=== PATIENT | female | born 1990 | race Caucasian/White ===

== ENCOUNTER 2017-06-14 01:29 | Emergency (ER) | payer OTHER ==
--- NOTE | 2017-06-14 01:47 | ER Document Report ---
ED Psych Disorder / Suicide - General Chief Complaint: Psych Problem Stated Complaint: PSYCH EVAL Time Seen by Provider: 06/14/17 01:39 Notes: The patient is a 26-year-old female, PMHx PTSD, anxiety, prior history of cutting herself, who presents by EMS after she was found staggering in [employer] with her 2 kids. [employer] was called who called EMS. Patient said she was very anxious because her ex- was on a first date with someone else. She said that she took 7 of her 100 mg Zoloft pills and two 0.5 mg Klonopin at noon yesterday in an attempt to kill herself. She said she also took some melatonin tabs. When EMS arrived, she took 2 more of her 0.5 mg Klonopins. She is completely asymptomatic. Patient denies abdominal pain, chest pain, shortness of breath, back pain, nausea, vomiting, homicidal ideation, rash, fevers or abdominal pain. Pt said that she told her 5-year-old son about what to expect after she killed herself. "I am not worried about him. I know he can take care of himself. He is my best friend. He just got saved by [employer]." - Related Data Allergies/Adverse Reactions: No Known Allergies Allergy (Unverified 06/14/17 02:04) Home Medications: Current Home Medications Clonazepam [Clonazepam] 0.5 mg PO ASDIR PRN 06/14/17 [History] Sertraline HCl [Sertraline HCl] 100 mg PO BID 06/14/17 [History] Past Medical History - General Information source: Patient - Social History Smoking Status: Unknown if Ever Smoked Family History: Reviewed & Not Pertinent Review of Systems - Review of Systems Notes: REVIEW OF SYSTEMS: CONSTITUTIONAL: -fevers, -chills EENT: -eye pain, -difficulty swallowing, -nasal congestion CARDIOVASCULAR:-chest pain, -syncope. RESPIRATORY: -cough, -SOB GASTROINTESTINAL: -abdominal pain, - nausea, -vomiting, -diarrhea GENITOURINARY: -dysuria, -hematuria MUSCULOSKELETAL: -back pain, -neck pain SKIN: -rash or skin lesions. HEMATOLOGIC: -easy bruising or bleeding. LYMPHATIC: -swollen, enlarged glands. NEUROLOGICAL: -altered mental status or loss of consciousness, -headache, - neurologic symptoms PSYCHIATRIC: +anxiety, +depression, +suicide attempt ALL OTHER SYSTEMS REVIEWED AND NEGATIVE. Physical Exam - Vital signs Vitals: Temp Pulse Resp BP Pulse Ox 98.8 F 96 18 127/100 H 97 06/14/17 02:05 06/14/17 02:05 06/14/17 02:05 06/14/17 02:05 06/14/17 02:05 - Notes Notes: PHYSICAL EXAMINATION: GENERAL: In no acute distress. Anxious. HEAD: Atraumatic, normocephalic. EYES: Pupils equal round and reactive to light, extraocular movements intact, sclera anicteric, conjunctiva are normal. ENT: nares patent, oropharynx clear without exudates. Moist mucous membranes. NECK: Normal range of motion, supple without lymphadenopathy LUNGS: Breath sounds clear to auscultation bilaterally and equal. No wheezes rales or rhonchi. HEART: Regular rate and rhythm without murmurs ABDOMEN: Soft, nontender, normoactive bowel sounds. No guarding, no rebound. No masses appreciated. EXTREMITIES: Normal range of motion, no pitting or edema. No cyanosis. NEUROLOGICAL: Cranial nerves grossly intact. Normal speech, normal gait. Normal sensory and motor exams. PSYCH: Suicidal thoughts. Very anxious. Pressured speech. SKIN: Warm, Dry, normal turgor, no rashes or lesions noted. Course - Re-evaluation Re-evalutation: Shell RN, spoke to poison control and due to the 13 hours since her Zoloft ingestion, she should not be manifesting any toxic effects. Patient said that she is anxious and is requesting her Klonopin. Told her that she already took too many of her Klonopin and that we can offer Vistaril. She said that she took her Zoloft, Klonopin and melatonin in attempt to kill herself because she is going through divorce and her ex- went out on a first date today. She agrees to speak to mental health in the morning. Patient appears manic with pressured speech and nonstop talking in the ER. She has never been diagnosed with bipolar before. She is medically cleared for evaluation by psychiatry. - Vital Signs Vital signs: Temp Pulse Resp BP Pulse Ox 98.8 F 96 18 127/100 H 97 06/14/17 02:05 06/14/17 02:05 06/14/17 02:05 06/14/17 02:05 06/14/17 02:05 - Laboratory Result Diagrams: 06/14/17 02:18 06/14/17 02:18 Laboratory results interpreted by me: 06/14/17 06/14/17 02:18 02:18 MCV 79 L MCH 26.5 L RDW 15.0 H Carbon Dioxide 20 L Salicylates < 1.0 L Acetaminophen < 10 L - EKG Interpretation by Me EKG shows normal: Sinus rhythm, [place], Intervals, QRS Complexes, ST-T Waves Rate: Normal Discharge - Discharge Clinical Impression: Suicide attempt Medication overdose Qualifiers: Encounter type: initial encounter Injury intent: undetermined intent Qualified Code(s): T50.904A - Poisoning by unspecified drugs, medicaments and biological substances, undetermined, initial encounter Condition: Stable Disposition: PSYCH HOSP/UNIT
[2017-06-14] MEDS ORDERED: HYDROXYZINE PAMOATE 25 MG CAPSULE PO ONE (02:27)
[2017-06-14] MEDS ORDERED: NICOTINE 21 MG/24 HR PATCH.TD24 TD ONE (02:42)
[2017-06-14 02:45] LABS: ABSOLUTE EOSINOPHILS # (AUTO) 0.1 10^3/uL (0.0-0.6); ABSOLUTE LYMPHOCYTES (AUTO) 1.8 10^3/uL (0.5-4.7); ABSOLUTE MONOCYTES (AUTO) 0.6 10^3/uL (0.1-1.4); BASOPHILS % (AUTO) 0.6 % (0-2); EOSINOPHILS % (AUTO) 1.3 % (0-6); HEMATOCRIT 39.5 % (36.0-47.0); HEMOGLOBIN 13.2 g/dL (12.0-15.5); HGB HCT DIFFERENCE 0.1; LYMPHOCYTES % (AUTO) 24.1 % (13-45); MEAN CORPUSCULAR HEMOGLOBIN 26.5 pg (27.0-33.4); MEAN CORPUSCULAR HGB CONC 33.4 g/dL (32.0-36.0); MEAN CORPUSCULAR VOLUME 79 fl (80-97); MONOCYTES % (AUTO) 7.6 % (3-13); RED BLOOD COUNT 4.98 10^6/uL (3.72-5.28); SEGMENTED NEUTROPHILS % (AUTO) 66.4 % (42-78); WHITE BLOOD COUNT 7.5 10^3/uL (4.0-10.5)
[2017-06-14 02:58] LABS: ALANINE AMINOTRANSFERASE 29 U/L (9-52); ALBUMIN 4.5 g/dL (3.5-5.0); ALKALINE PHOSPHATASE 64 U/L (38-126); ANION GAP 16 (5-19); ASPARTATE AMINO TRANSFERASE 23 U/L (14-36); BILIRUBIN,DIRECT 0.2 mg/dL (0.0-0.4); BILIRUBIN,TOTAL 0.3 mg/dL (0.2-1.3); BLOOD UREA NITROGEN 7 mg/dL (7-20); CALCIUM 9.7 mg/dL (8.4-10.2); CARBON DIOXIDE 20 mmol/L (22-30); CHLORIDE 107 mmol/L (98-107); CREATININE RESULT 0.78 mg/dL (0.52-1.25); GLUCOSE 83 mg/dL (75-110); POTASSIUM 3.6 mmol/L (3.6-5.0); SODIUM 142.7 mmol/L (137-145); TOTAL PROTEIN 6.9 g/dL (6.3-8.2)
[2017-06-14 02:59] LABS: ALCOHOL < 10 mg/dL (NONE DETECTED)
[2017-06-14 03:11] LABS: URINE BARBITURATES SCREEN NEGATIVE; URINE METHADONE SCREEN NEGATIVE; URINE OPIATES LOW NEGATIVE; URINE PHENCYCLIDINE SCREEN NEGATIVE
[2017-06-14] MEDS ORDERED: HALOPERIDOL LACTATE INJ 5 MG/1 ML VIAL IM ONE (03:14)
[2017-06-14 03:20] LABS: APPEARANCE,URINE CLEAR; BILIRUBIN,URINE NEGATIVE (NEGATIVE); GLUCOSE, URINE NEGATIVE (NEGATIVE); KETONES,URINE NEGATIVE (NEGATIVE); LEUKOCYTE ESTERASE,URINE NEGATIVE (NEGATIVE); NITRITE,URINE NEGATIVE (NEGATIVE); PROTEIN,URINE NEGATIVE (NEGATIVE); URINE SPECIFIC GRAVITY 1.002; UROBILINOGEN,URINE NEGATIVE mg/dL (<2.0)
[2017-06-14 03:27] LABS: BACTERIA,URINE TRACE /HPF; RBC,URINE NONE SEEN /HPF; WBC,URINE NONE SEEN /HPF
--- NOTE | 2017-06-14 09:13 | EKG REPORT ---
SEVERITY:- NORMAL ECG - SINUS RHYTHM : Confirmed by: José Miguel Moy MD 14-Jun-2017 09:13:28
--- NOTE | 2017-06-14 10:16 | ER Document Report ---
Doctor's Note Notes: 06/14/17 10:15 Rounds: Chart reviewed and patient interviewed. Patient is being evaluated for suicidal ideation. Took an overdose of some Zoloft and Klonopin. Patient says she feels better this morning. Still feel sleepy. Vital signs are all normal. Labs were all normal except for being positive for benzos, which she took in her overdose. Patient appears to be medically stable for transfer or discharge. Mental health has assessed the patient and feel she is she should be kept for placement. Ambrose Small MD
[2017-06-14] MEDS ORDERED: OLANZAPINE 2.5 MG TABLET PO SCH (10:30)
[2017-06-14] MEDS ORDERED: BUSPIRONE HCL 10 MG TABLET PO SCH (10:30)
[2017-06-14] MEDS ORDERED: SERTRALINE HCL 50 MG TABLET PO SCH (10:30)
[2017-06-14 13:12] VITALS: BP 124/71
--- NOTE | 2017-06-15 07:06 | PSYCHOLOGICAL NOTE ---
Psych Note - Psych Note Psych Note: Patient is a 26 year old female who presented to the ED assistant news director via EMS after [employer] responded on scene at an OP where patient was staggering and presenting altered with her 2 children. Patient continued to be adamant she had tried to overdose on her Zoloft, Klonopin and Melatonin the day before going to [facility] due to her and and him having gone out on a date. She stated [place] started out normal, her and the kids were eating, and the next thing she knows police were there. She stated her children are ages 3 and 5. She identified she attempted suicide 2 months ago by cutting her wrist. She showed this clinician a significant scare that was vertical on her right wrist. She stated she had not sought medical attention at that time. She admitted to self injury via cutting when she was a teenager and again showed this clinician 2 scars on her left arm. She denied previous hospitalizations. She stated her outpatient provider for medication management is Dr. Catalan at [facility] and her last visit was earlier this week. She stated she felt okay at that time and no medications were changed. She identified her family is in [place] and she has one friend locally. When asked about family history she commented "there is a family history this is what we do." Patient was sleeping and required her name stated 2-3 times loudly and a gentle shake of her leg in order to wake up. She presented lethargic and groggy. Her eyes were bloodshot, eyelids were swollen and heavy. She admitted to an intentional overdose the day before going to [facility] (time of reference may be off) . She admitted to a suicide attempt via cutting wrist 2 months ago for which she did not seek medical attention for. She denied HI. She did not appear to be responding to internal stimuli AEB answering questions appropriately when addressed. Thought processes were a little disorganized given the lethargy. Conversational speech was soft in tone and somewhat slurred. Intellectual abilities are estimated to be average. Insight, judgment and impulse control are poor AEB trying to overdose and then driving her children to [facility] after waking up (again time frame was likely off). Patient gave verbal consent to obtain collateral from her mother, Keturah ). Called at 0828. No answer. Left general voice mail with call back contact information. Attempted to contact patient's soon to be ex , Abner ([phone]). Initially had wrong number (instead of last number being 7 had 6). No answer. Left general voice mail. He came to visit patient. Did not allow him to visit but patient did provide verbal consent to keep him informed of plan of care/ treatment and to give him the keys that were in her purse (in her belongings and documented on belonging sheet). This clinician also documented on the belonging sheet that patient gave verbal consent to give soon to be ex the keys. Soon to be ex identified he files legal separation papers this coming Thursday and so they both have custody of the children. He confirmed a friend is watching the children currently but he has them. He noted he is active duty and his command is aware of the situation thus providing him leave the next week or so. He stated his parents reside in [place] and due to his work the children may need to go stay with them for care. He described patient as selfish and only thinking of her self which is why he is from her. He noted he plans to try to get full custody of the children. Called DSS and made a CPS report to in home sales consultantcall center director, Sonia Olivares. Diagnosis: 296.80 (F32.9) Unspecified Bipolar and Related Disorder Impression/Plan: Recommendation to maintain IVC. Patient admitted to an intentional OD 1-2 days ago, as well as a suicide attempt 2 months ago via cutting wrist. Her is from her which was a trigger for the overdose. He is officially filing for separation this coming Thursday. Consulted with Dr. Zhong regarding the management and care of patient. ED Physician in agreement with recommendations. Contacted [facility] about bed availability and by 1250 patient was accepted.
== END 2017-06-14 15:22 ==
LOC: ER 01:29
DX: T43.222A Poisoning by selective serotonin reuptake inhibitors, intentional self-harm, initial encounter (principal); F41.9 Anxiety disorder, unspecified; Z79.899 Other long term (current) drug therapy
CPT/HCPCS: 93005; 99285; 96372; 36415; 80307 ×4; 84703; 85025; 80053; 81001; 93010; J1630